=== PATIENT | male | born 1960 | race African-American/Black ===

== ENCOUNTER → 2017-02-17 | Outpatient (CLI) | payer MEDICARE, MEDICAID | END | disposition home or self-care (01) | LOC: CT 10:52 | PROVIDERS: ATTEND Internal Medicine Critical Care Medicine | DX: J43.9 Emphysema, unspecified (principal); K76.89 Other specified diseases of liver; I25.10 Atherosclerotic heart disease of native coronary artery without angina pectoris; I31.3 Pericardial effusion (noninflammatory) | CPT/HCPCS: 71250 ==

== ENCOUNTER 2017-10-14 18:14 | Inpatient (IN) | payer MEDICARE, MEDICAID ==
[~2017-10-14] VITALS: Ht 172.7 cm; Wt 63.5 kg
[2017-10-14] MEDS ORDERED: METHYLPREDNISOLONE SOD SUCC 125 MG/2 ML VIAL IV STA (18:43)
[2017-10-14] MEDS ORDERED: NITROGLYCERIN OINT 1GM/INCH UDPKT TD STA (18:43)
[2017-10-14] MEDS ORDERED: IPRATROPIUM/ALBUTEROL 0.5-3(2.5)MG/3ML NEB HHN ONE (18:45)
[2017-10-14 19:16] LABS: BASOPHILS % 1.2 % (0.0-2.0); EOSINOPHILS % 2.3 % (0.0-5.0); HEMATOCRIT. 35.5 % (42.0-52.0); HEMOGLOBIN. 11.3 g/dL (14.0-18.0); LYMPHOCYTES % 12.4 % (20.0-50.0); MEAN CORPUSCULAR HEMOGLOBIN 28.6 pg (28.0-32.0); MEAN CORPUSCULAR VOLUME 89.9 fL (80.0-94.0); MEAN PLATELET VOLUME 8.4 fl (7.4-10.4); MONOCYTES % 5.7 % (2.0-8.0); NEUTROPHILS % 78.4 % (40.0-76.0); PLATELET 193 x1000/uL (130-400); RED BLOOD CELL COUNT 3.95 mill/uL (4.7-6.1); RED CELL DISTRIBUTION WIDTH 19.5 % (11.6-14.6)
[2017-10-14 19:20] LABS: CHLORIDE 104 mEq/L (98-107)
[2017-10-14 19:22] LABS: INR 1.1; PARTIAL THROMBOPLASTIN TIME 26.5 sec (23.4-31.0); PROTHROMBIN TIME 11.1 sec (9.4-11.6)
[2017-10-14] MEDS ORDERED: DEXTROSE 50% WATER 50ML SYRINGE IV ONE (19:45)
[2017-10-14] MEDS ORDERED: SODIUM POLYSTYRENE SULFONATE 15 G/60 ML BOT PO ONE (19:45)
[2017-10-14] MEDS ORDERED: SODIUM BICARBONATE 8.4% 1 MEQ/ML 50ML SYR IV ONE (19:45)
[2017-10-14] MEDS ORDERED: INSULIN REGULAR (HUMULIN R) 300UNITS/3ML IV ONE (19:45)
[2017-10-14 21:45] LABS: BG BASE EXCESS -3.8 mmol/L (-2.0-2.0); BG CARBOXYHEMOGLOBIN 0.9 % (0.5-1.5); BG DEOXYHEMOGLOBIN 5.1 % (0.0-5.0); BG FRACTION INSPIRED OXYGEN 28; BG HCO3 ACT 23.1 mmol/L (22.0-26.0); BG METHEMOGLOBIN 0.2 % (0.0-1.5); BG OXYGEN SATURATION 94.8 % (92.0-98.5); BG OXYHEMOGLOBIN 93.8 % (94.0-97.0); BG PCO2 49.5 mmHg (35.0-45.0); BG PH 7.286 (7.350-7.450); BG PO2 85.9 mmHg (75.0-100.0); BG SAMPLE SITE RIGHT RADIAL; BG TOTAL HEMOGLOBIN 11.5 g/dL (12.0-18.0); BG VENT MODE NASAL CANNULA
[2017-10-14] MEDS ORDERED: IPRATROPIUM/ALBUTEROL 0.5-3(2.5)MG/3ML NEB INH PRN (23:30)
[2017-10-14] MEDS ORDERED: DOCUSATE SODIUM 100MG CAPSULE PO PRN (23:30)
[2017-10-14] MEDS ORDERED: ACETAMINOPHEN 325MG TABLET PO PRN (23:30)
[2017-10-14] MEDS ORDERED: CLONIDINE 0.1MG TABLET PO PRN (23:30)
[2017-10-14] MEDS ORDERED: ONDANSETRON 4MG ODT PO PRN (23:30)
[2017-10-14] MEDS ORDERED: MAGNESIUM/ALUMINUM HYDROXIDE/SIMETHICONE 30ML UDC PO PRN (23:30)
[2017-10-14] MEDS ORDERED: ZOLPIDEM TARTRATE 5MG TABLET PO PRN (23:59)
[2017-10-15] VITALS (7 sets, daily range): BP systolic 147–171; BP diastolic 78–89
[2017-10-15] MEDS ORDERED: SEVE800T8 PO (06:39)
[2017-10-15] MEDS ORDERED: AMLO5TAB4 PO (06:39)
[2017-10-15 07:25] LABS: HEMATOCRIT. 29.4 % (42.0-52.0); HEMOGLOBIN. 9.6 g/dL (14.0-18.0); MEAN CORPUSCULAR HEMOGLOBIN 28.7 pg (28.0-32.0); MEAN CORPUSCULAR VOLUME 88.1 fL (80.0-94.0); MEAN PLATELET VOLUME 8.6 fl (7.4-10.4); PLATELET 162 x1000/uL (130-400); RED BLOOD CELL COUNT 3.34 mill/uL (4.7-6.1); RED CELL DISTRIBUTION WIDTH 18.8 % (11.6-14.6)
[2017-10-15] MEDS ORDERED: HEPARIN SODIUM 1,000 UNIT/1ML VIAL IV SCH (07:45)
[2017-10-15 08:24] LABS: PHOSPHORUS 8.2 mg/dL (2.5-4.9)
[2017-10-15] MEDS: IPRATROPIUM/ALBUTEROL 0.5-3(2.5)MG/3ML NEB INH SCH ×3 (09:00→20:30)
[2017-10-15] MEDS: OMEPRAZOLE 20MG CAPSULE EXTENDED RELEASE PO SCH (09:50)
[2017-10-15] MEDS: FOLIC ACID/VITAMIN B COMP W-C TABLET PO SCH (09:50)
[2017-10-15] MEDS: AZITHROMYCIN 250 MG TABLET PO SCH (09:51)
[2017-10-15] MEDS ORDERED: AMLODIPINE 5MG TABLET PO NR (11:15)
[2017-10-15] MEDS: SEVELAMER CARBONATE 800 MG TABLET PO SCH ×2 (12:29→17:33)
[2017-10-15] MEDS: HYDRALAZINE HCL 50MG TABLET PO SCH ×2 (13:10→21:07)
[2017-10-15 13:12] LABS: PLATELET ESTIMATE NORMAL
[2017-10-15 13:29] LABS: BG BASE EXCESS 1.9 mmol/L (-2.0-2.0); BG CARBOXYHEMOGLOBIN 0.3 % (0.5-1.5); BG DEOXYHEMOGLOBIN 3.1 % (0.0-5.0); BG FRACTION INSPIRED OXYGEN 28; BG HCO3 ACT 26.3 mmol/L (22.0-26.0); BG METHEMOGLOBIN 0.3 % (0.0-1.5); BG OXYGEN SATURATION 96.9 % (92.0-98.5); BG OXYHEMOGLOBIN 96.3 % (94.0-97.0); BG PCO2 40.6 mmHg (35.0-45.0); BG PO2 97.2 mmHg (75.0-100.0); BG SAMPLE SITE RIGHT BRACHIAL; BG TOTAL HEMOGLOBIN 11.3 g/dL (12.0-18.0); BG VENT MODE NASAL CANNULA
[2017-10-15] MEDS: BUDESONIDE 0.5MG/2ML NEB HHN SCH (20:30)
[2017-10-15] MEDS ORDERED: EPOETIN ALFA 4000UNITS/ML VIAL SUBCUT SCH (21:00)
[2017-10-16 00:05] VITALS: BP 148/79
[2017-10-16] MEDS: IPRATROPIUM/ALBUTEROL 0.5-3(2.5)MG/3ML NEB INH SCH ×3 (02:13→14:01)
[2017-10-16 04:00] VITALS: BP 141/75
[2017-10-16] MEDS: HYDRALAZINE HCL 50MG TABLET PO SCH ×2 (05:45→13:35)
[2017-10-16 06:38] LABS: BASOPHILS % 0.9 % (0.0-2.0); EOSINOPHILS % 1.4 % (0.0-5.0); HEMOGLOBIN. 11.1 g/dL (14.0-18.0); LYMPHOCYTES % 15.5 % (20.0-50.0); MEAN CORPUSCULAR HEMOGLOBIN 28.7 pg (28.0-32.0); MEAN CORPUSCULAR VOLUME 87.8 fL (80.0-94.0); MEAN PLATELET VOLUME 8.3 fl (7.4-10.4); MONOCYTES % 7.3 % (2.0-8.0); NEUTROPHILS % 74.9 % (40.0-76.0); PLATELET 171 x1000/uL (130-400); RED BLOOD CELL COUNT 3.88 mill/uL (4.7-6.1); RED CELL DISTRIBUTION WIDTH 18.8 % (11.6-14.6)
[2017-10-16] MEDS: BUDESONIDE 0.5MG/2ML NEB HHN SCH (07:57)
[2017-10-16 08:00] VITALS: BP 167/95
[2017-10-16] MEDS ORDERED: AMLODIPINE 5MG TABLET PO SCH (09:00)
[2017-10-16] MEDS: AZITHROMYCIN 250 MG TABLET PO SCH (10:01)
[2017-10-16] MEDS: OMEPRAZOLE 20MG CAPSULE EXTENDED RELEASE PO SCH (10:01)
[2017-10-16] MEDS: FOLIC ACID/VITAMIN B COMP W-C TABLET PO SCH (10:01)
[2017-10-16] MEDS: SEVELAMER CARBONATE 800 MG TABLET PO SCH ×2 (10:02→13:34)
[2017-10-16 12:00] VITALS: BP 149/74
[2017-10-16 15:17] VITALS: BP 154/81
[2017-10-16 16:00] VITALS: BP 162/89
== END 2017-10-16 17:14 | disposition home or self-care (01) | DRG 640 ==
LOC: ER 18:14 → EDBEDREQ 18:49 → 7WST 23:05 → EDBEDREQ 23:07 → SUPCPDRO 23:19 → ENRESERV 23:40
PROVIDERS: ADMIT Internal Medicine; ATTEND Internal Medicine
PROC: 5A1D70Z Performance of Urinary Filtration, Intermittent, Less than 6 Hours Per Day (ICD-10-PCS; principal; 2017-10-15)
DX: E87.70 Fluid overload, unspecified (principal); J96.01 Acute respiratory failure with hypoxia; I13.2 Hypertensive heart and chronic kidney disease with heart failure and with stage 5 chronic kidney disease, or end stage renal disease; I27.20 Pulmonary hypertension, unspecified; E83.39 Other disorders of phosphorus metabolism; J44.0 Chronic obstructive pulmonary disease with (acute) lower respiratory infection; N18.6 End stage renal disease; I50.20 Unspecified systolic (congestive) heart failure; N25.81 Secondary hyperparathyroidism of renal origin; E87.5 Hyperkalemia; D63.8 Anemia in other chronic diseases classified elsewhere; I08.0 Rheumatic disorders of both mitral and aortic valves; E78.00 Pure hypercholesterolemia, unspecified; E78.5 Hyperlipidemia, unspecified; F17.210 Nicotine dependence, cigarettes, uncomplicated; J20.9 Acute bronchitis, unspecified; Z99.2 Dependence on renal dialysis; Z79.899 Other long term (current) drug therapy; Z82.71 Family history of polycystic kidney; Z91.15 Patient's noncompliance with renal dialysis
CPT/HCPCS: 36415; 36600; 71045; 80048; 80053; 82375; 82805; 82962; 83605; 83735; 84100; 84484; 85025; 85610; 85730; 87040; 93005; 93306; 94640; 96374; 96375; 99291; J0885; J1644; J1815; J2930; J3490; J7030; J7620; J7626

== ENCOUNTER 2022-06-22 10:31 | Inpatient (IN) | payer MEDICARE, MEDICAID ==
[~2022-06-22] VITALS: Ht 172.7 cm; Wt 77.0 kg
[~2022-06-22 10:31] MED LIST: AMLO5TAB4 PO; SEVE800T8 PO
[2022-06-22] MEDS ORDERED: PANTOPRAZOLE SODIUM 40 MG/VIAL IV STA (11:39)
[2022-06-22 13:17] LABS: BASOPHILS % 0.9 % (0.0-2.0); EOSINOPHILS % 2.3 % (0.0-5.0); LYMPHOCYTES % 14.8 % (20.0-50.0); MEAN CORPUSCULAR HEMOGLOBIN 30.8 pg (28.0-32.0); MEAN CORPUSCULAR VOLUME 93.3 fL (80.0-94.0); MEAN PLATELET VOLUME 9.1 fl (7.4-10.4); MONOCYTES % 6.9 % (2.0-8.0); NEUTROPHILS % 75.1 % (40.0-76.0); PLATELET 155 x1000/uL (130-400); RED BLOOD CELL COUNT 1.74 mill/uL (4.7-6.1); RED CELL DISTRIBUTION WIDTH 17.6 % (11.6-14.6)
[2022-06-22 13:23] LABS: HEMATOCRIT. 16.2 % (42.0-52.0); HEMOGLOBIN. 5.4 g/dL (14.0-18.0)
[2022-06-22 13:31] LABS: CHLORIDE 99 mEq/L (98-107)
[2022-06-22 18:20] VITALS: BP 136/69
[2022-06-22] MEDS ORDERED: BISACODYL 10MG SUPP PR PRN (19:30)
[2022-06-22] MEDS ORDERED: BISACODYL 5MG TABLET PO PRN (19:30)
[2022-06-22 20:00] VITALS: BP 114/66
[2022-06-22 21:32] LABS: HEMATOCRIT 21.5 % (42.0-52.0); HEMOGLOBIN 7.1 g/dL (14.0-18.0)
[2022-06-22] MEDS ORDERED: ACETAMINOPHEN 325MG TABLET PO PRN (22:30)
[2022-06-22] MEDS ORDERED: ONDANSETRON HCL 4MG/2ML INJ IV PRN (22:30)
[2022-06-22] MEDS: HYDROCORTISONE ACETATE 25MG SUPP PR SCH (23:29)
[2022-06-23] VITALS (9 sets, daily range): BP systolic 118–149; BP diastolic 51–83
[2022-06-23 06:11] LABS: CHLORIDE 101 mEq/L (98-107); CREATINE KINASE 192 IU/L (39-308); CREATINE KINASE MB FRACTION 3.3 ng/mL (0.5-3.6); TOTAL IRON BINDING CAPACITY 207 ug/dL (250-450)
[2022-06-23 06:26] LABS: FERRITIN 641 ng/mL (22-322)
[2022-06-23 06:35] LABS: BASOPHILS % 0.9 % (0.0-2.0); EOSINOPHILS % 3.1 % (0.0-5.0); HEMATOCRIT. 24.1 % (42.0-52.0); HEMOGLOBIN. 8.1 g/dL (14.0-18.0); LYMPHOCYTES % 12.6 % (20.0-50.0); MEAN CORPUSCULAR HEMOGLOBIN 30.6 pg (28.0-32.0); MEAN CORPUSCULAR VOLUME 90.9 fL (80.0-94.0); MEAN PLATELET VOLUME 9.6 fl (7.4-10.4); MONOCYTES % 7.5 % (2.0-8.0); NEUTROPHILS % 75.9 % (40.0-76.0); PLATELET 171 x1000/uL (130-400); RED BLOOD CELL COUNT 2.65 mill/uL (4.7-6.1); RED CELL DISTRIBUTION WIDTH 16.6 % (11.6-14.6)
[2022-06-23 06:37] LABS: VITAMIN B12 SERUM 870 pg/mL (211-911)
[2022-06-23] MEDS ORDERED: SEVELAMER CARBONATE 800 MG TABLET PO SCH (07:40)
[2022-06-23] MEDS: HYDROCORTISONE ACETATE 25MG SUPP PR SCH (08:33)
[2022-06-23] MEDS ORDERED: POLYETHYLENE GLYCOL 3350 (17GM) 1 DOSE PACK PO SCH (09:00)
[2022-06-23] MEDS ORDERED: AMLODIPINE 5MG TABLET PO SCH (09:00)
[2022-06-23] MEDS ORDERED: PANTOPRAZOLE SODIUM 40 MG/VIAL IV SCH ×2 (09:00)
[2022-06-23 11:54] LABS: HEPATITIS B SURFACE ANTIGEN NEGATIVE
== END 2022-06-23 12:30 | disposition left against medical advice (07) | DRG 377 ==
LOC: ER 10:31 → 8WST 14:50 → EDBEDREQTM 14:54 → EDBEDREQ 14:54
PROVIDERS: ADMIT Internal Medicine; ATTEND Internal Medicine
PROC: 30233N1 Transfusion of Nonautologous Red Blood Cells into Peripheral Vein, Percutaneous Approach (ICD-10-PCS; principal; 2022-06-22)
DX: K92.1 Melena (principal); N18.6 End stage renal disease; I12.0 Hypertensive chronic kidney disease with stage 5 chronic kidney disease or end stage renal disease; K64.8 Other hemorrhoids; D64.9 Anemia, unspecified; Z20.822 Contact with and (suspected) exposure to COVID-19; J44.9 Chronic obstructive pulmonary disease, unspecified; E78.00 Pure hypercholesterolemia, unspecified; E05.90 Thyrotoxicosis, unspecified without thyrotoxic crisis or storm; D63.1 Anemia in chronic kidney disease; E78.5 Hyperlipidemia, unspecified; Z53.29 Procedure and treatment not carried out because of patient's decision for other reasons; F17.200 Nicotine dependence, unspecified, uncomplicated; Z99.2 Dependence on renal dialysis; Z99.81 Dependence on supplemental oxygen; Z79.899 Other long term (current) drug therapy
CPT/HCPCS: 36415; 71045; 74176; 76700; 80048; 80053; 82550; 82553; 82607; 82728; 82746; 83540; 83550; 84484; 85014; 85018; 85025; 85044; 86705; 86709; 86803; 86850; 86900; 86920; 87340; 87426; 93005; 99285; C9113; P9016

== ENCOUNTER 2022-11-15 07:25 | Emergency (ER) | payer MEDICARE, MEDICAID ==
[~2022-11-15] VITALS: Ht 175.3 cm; Wt 73.0 kg
[~2022-11-15 07:25] MED LIST changes: -AMLO5TAB4 PO; +BENZ100C86 PO; +BUPR-46 PO; +DILT360C27 MT; +FAMO20TA8 PO; +GABA-529 PO; +METO-539 PO
[2022-11-15] MEDS ORDERED: DILTIAZEM HCL 5MG/ML 5ML VIAL IV ONE (08:30)
[2022-11-15 08:31] LABS: HEMATOCRIT. 26.2 % (42.0-52.0); MEAN CORPUSCULAR HEMOGLOBIN 27.7 pg (28.0-32.0); MEAN CORPUSCULAR VOLUME 90.5 fL (80.0-94.0); MEAN PLATELET VOLUME 7.9 fl (7.4-10.4); PLATELET 278 x1000/uL (130-400)
[2022-11-15 08:36] LABS: CHLORIDE 103 mEq/L (98-107)
[2022-11-15 09:05] LABS: PLATELET ESTIMATE NORMAL
[2022-11-15] MEDS ORDERED: DILTIAZEM HCL 30MG TABLET PO ONE (10:30)
[2022-11-15 10:56] VITALS: BP 113/72
[2022-11-15] MEDS ORDERED: MIDODRINE HCL 5MG TABLET PO SCH (11:15)
[2022-11-15] MEDS ORDERED: DILTIAZEM HCL 90MG TABLET PO SCH (12:00)
[2022-11-15] MEDS ORDERED: CEFEPIME 1,000 MG in DEXTROSE 5% WATER 50 ML IV SCH (13:30)
[2022-11-15] MEDS ORDERED: METOPROLOL TARTRATE 50MG TABLET PO SCH (21:00)
== END 2022-11-15 13:10 | disposition left against medical advice (07) ==
LOC: ER 07:25 → CMPBEDREQ 11-16 00:40
DX: I48.20 Chronic atrial fibrillation, unspecified (principal); I12.9 Hypertensive chronic kidney disease with stage 1 through stage 4 chronic kidney disease, or unspecified chronic kidney disease; I21.3 ST elevation (STEMI) myocardial infarction of unspecified site; J44.1 Chronic obstructive pulmonary disease with (acute) exacerbation; E78.00 Pure hypercholesterolemia, unspecified; Z79.899 Other long term (current) drug therapy; Z86.39 Personal history of other endocrine, nutritional and metabolic disease
CPT/HCPCS: 36415; 71045; 80053; 83880; 84145; 84484; 85025; 93005; 96374; 99285; J3490; J0692; J7060